=== PATIENT | female | born 1955 | race Two or more races ===

== ENCOUNTER → 2017-07-19 | Emergency (ER) | payer OTHER ==
[~2017-07-19] VITALS: Ht 157.5 cm; Wt 57.6 kg
[~2017-07-19] MED LIST: CEFDINIR300 MG PO; CEFUROXIME500 MG PO; DURICEF PO; KETO10TA2 PO; ORPH100T PO; PEPCID40 MG PO; PHENERGAN25 MG PO; SYNTHROID50 MCG; SYNTHROID50 MCG PO; ZANTAC300 MG PO
== END | disposition home or self-care (01) ==
LOC: ER 00:55
DX: K29.00 Acute gastritis without bleeding (principal); T36.3X5A Adverse effect of macrolides, initial encounter

== ENCOUNTER → 2018-09-28 | Emergency (ER) | payer OTHER ==
[~2018-09-28] VITALS: Ht 157.5 cm; Wt 58.5 kg
== END | disposition home or self-care (01) ==
LOC: ER 08:13
DX: J11.1 Influenza due to unidentified influenza virus with other respiratory manifestations (principal)